=== PATIENT | female | born 1970 | race Caucasian/White ===

== ENCOUNTER 2021-03-21 21:39 | Emergency (ER) | payer BC, SELFPAY ==
[2021-03-21 21:40] VITALS: BP 153/92; PULSE 88; RESP 15; TEMP 36.6; O2SAT 99; BMI 31.3
[2021-03-21 22:18] VITALS: BP 140/84; PULSE 80; RESP 14; O2SAT 98
--- NOTE | 2021-03-21 22:20 | EKG12_ITS ---
Test Reason : ARM PAIN Blood Pressure : / mmHG Vent. Rate : 084 BPM Atrial Rate : 084 BPM P-R Int : 200 ms QRS Dur : 084 ms QT Int : 370 ms P-R-T Axes : 057 023 046 degrees QTc Int : 437 ms Normal sinus rhythm Normal ECG Confirmed by SOFÍA BENAVIDES, ASHA ([id number]), map editor RAFAEL THOMPSON ([id number]) on 03/23/2021 9:40:15 AM Referred By: JOANNE Confirmed By:ASHA GORE MD
[2021-03-21 23:01] VITALS: O2SAT 98
--- NOTE | 2021-03-21 23:10 | EX.ED.UPPERE ---
HPI History of Present Illness Chief Complaint: Upper Extremity Injury Narrative Narrative: 50-year-old female presenting with palpitations and pain in the left shoulder. She states that she noticed this for the last couple of days. She states she has a bruise on the left forearm and sometimes the pain in her left shoulder radiates down to the left arm. She denies any cardiac history. She relates that she had COVID last year and just had a mild case of COVID about 3 weeks ago. She is not having elan chest pain or pressure. She does state that the pain in her left shoulder is sharp. She does not have pleuritic chest pain. She is not short of breath. She does not have fever or chills. She does have concern that she might have a blood clot. Patient has no history of DVT/PE and no other risk factors other than recent COVID-19 pneumonitis. PFSH PFSH Medical History Anxiety Depression Former smoker Osteoporosis Allergy/AdvReac Type Severity Reaction Status Date / Time No Known Allergies Allergy Verified 03/21/21 21:40 Surgical History Hx of tonsillectomy Social History Smoking Status: Former smoker ROS ROS ED Constitutional Constitutional ED: Denies chills or fever(s) Eyes Eyes: Denies blurry vision or diplopia ENT ENT ED: Denies rhinorrhea or sore throat Cardiovascular Cardiovascular: Reports palpitations Respiratory/Chest Respiratory/Chest: Denies cough or dyspnea Gastrointestinal Gastrointestinal: Denies abdominal pain, nausea or vomiting Genitourinary Genitourinary ED: Denies dysuria or hematuria Musculoskeletal Musculoskeletal: Reports other Details: Left shoulder and left forearm pain Integumentary Reports other Details: 2 cm bruise on left forearm ; Denies rash Neurologic Neurologic: Denies headache(s) or weakness EXAM Physical Exam Const Vital Signs: 03/21/21 21:40 03/21/21 22:18 Temperature 97.8 F Temperature Source Temporal Pulse Rate 88 80 Respiratory Rate 15 14 Blood Pressure 153/92 H 140/84 H Blood Pressure Mean 112 102 Pulse Ox 99 98 Oxygen Delivery Method Room Air Room Air Positive well nourished General Appearance ED: NAD HEENT normocephalic and atraumatic Eyes PERRL and EOMs intact bilaterally Neck full ROM and supple Chest Wall inspection of chest normal Resp normal respiratory effort and clear to auscultation bilaterally Cardio regular rate and regular rhythm Extremity Extremity Narrative: 2 cm bruise to left forearm laterally on the dorsal surface. No cords palpated. 2+ radial pulse. Left hand neurovascular intact brisk cap refill to all 5 fingers. Psych mental status grossly normal Skin Skin Narrative: Bruising as noted above MDM MDM MDM Narrative Medical decision making narrative: Given patient's concern for palpitations and possible PE I did obtain an EKG and on my interpretation this is a normal sinus rhythm at a ventricular rate of 84 bpm without sign of ischemic change or dysrhythmia. Chest x-ray on my interpretation shows no acute cardiopulmonary process and the radiologist does agree. Left shoulder x-ray on my interpretation shows no acute fracture or subluxation. CBC and BMP unremarkable. D-dimer is negative. High-sensitivity troponin is initially 4 and the delta troponin is 5. This does rule out ACS. Ultimately patient has negative cardiac work-up. She is negative for PE and her left shoulder is normal. Patient given instructions for alternating ice and heat for pain in the left shoulder. She will follow-up with her PCP to ensure resolution. Impression: 1. Palpitations 2. Left shoulder strain 3. Left forearm contusion Discharge Plan Triage Chief Complaint: Upper Extremity Injury ED Provider: Jayden Medrano Dx/Rx/DC Orders Instructions: ED Palpitations, ED Shoulder Sprain Referrals: RADAMES KNIGHT [Other] Disposition Disposition: Home, Self Care
--- NOTE | 2021-03-21 23:25 | RAD_ITS ---
STUDY: X-RAY CHEST REASON FOR EXAM: Female, 50 years old. Chest pain TECHNIQUE: Frontal view COMPARISON: None. FINDINGS: The lungs are clear and expanded. There is no demonstrated pleural abnormality. Normal size heart. Normal mediastinum and mary. Normal visualized pulmonary arteries. Normal visualized aortic arch and descending thoracic aorta. Normal visualized thoracic spine. Normal visualized ribs, clavicles, and shoulders. There is no demonstrated abnormality of the visualized soft tissue structures of the upper abdomen. RAD/Chest 1 View (Portable) IMPRESSION: Normal x-ray examination of the chest. Electronically Signed: Rashaun Naqvi DO at 23:43 EST Tel [phone], Service support ,
[2021-03-21 23:29] LABS: Absolute Lymphocyte Count 2.16 X10^3/uL (0.83-4.51); Absolute Neutrophil Count 3.7 X10^3/uL (2.0-7.7); Anion Gap 7 (5-15); BUN 20 mg/dL (7-18); BUN/Creat Ratio 20.9 RATIO (10-20); Basophil# 0.06 X10^3/uL; Basophil% 0.9 % (0-1); Calcium,Total 9.1 mg/dL (8.5-10.1); Chloride 107 mmol/L (98-107); Creatinine, Serum 0.96 mg/dL (0.55-1.02); EST Glomerular Filtration Rate 65 mL/min (>60); Eosinophils% 1.5 % (0-5); Est Glom Filt Rate - Afr Amer 79 mL/min (>60); Estimated Creatinine Clearance 66.66 ml/min; Glucose 141 mg/dL (74-106); Hematocrit 36.3 % (37-47); Lymphocyte # 2.16 X10^3/ul (0.83-4.51); Lymphocyte % 31.6 % (19-41); Mean Corp Hgb Conc 33.1 g/dL (32-36); Mean Corpuscular Hgb 29.9 pg (27.0-32.0); Mean Corpuscular Volume 90.3 fL (81-99); Mean Platelet Vol. 10.3 fl (6.2-12.0); Monocyte# 0.76 X10^3/uL; Monocyte% 11.1 % (0-10); NRBC Flagged by Analyzer 0 % (0-5); Neutrophil # 3.68 X10^3/uL (2.7-7.7); Neutrophil % 53.9 % (47-70); Platelet Count 294 K/mm3 (150-450); Potassium 3.6 mmol/L (3.5-5.1); RBC Distribution Width CV 11.9 % (11.6-14.6); RBC Distribution Width SD 39.5 fl (35.1-43.9); Red Blood Count 4.02 M/mm3 (4.2-5.4); Sodium Level 141 mmol/L (136-145); Troponin-I HS 4 pg/mL (3.0-54.0); White Blood Count 6.8 K/mm3 (4.4-11.0)
[2021-03-21 23:30] LABS: D-Dimer Quantitative (DVT/PE) <= 0.27 FEU/ug/m (0.27-0.49)
--- NOTE | 2021-03-22 00:20 | RAD_ITS ---
STUDY: X-RAY - LEFT SHOULDER REASON FOR EXAM: Female, 50 years old. shoulder pain TECHNIQUE: 2 view(s) of the shoulder. COMPARISON: None. FINDINGS: Normal glenohumeral articulation. Normal acromioclavicular joint. Normal acromion. Normal humeral head and visualized proximal humerus. The soft tissue structures are unremarkable. Normal visualized pulmonary apex. RAD/Shoulder min 2 Views IMPRESSION: Normal x-ray examination of the shoulder. Electronically Signed: Phan Bruno MD at 1:11 EST , Service support ,
[2021-03-22 01:24] LABS: Troponin-I HS 5 pg/mL (3.0-54.0)
[2021-03-22 01:32] VITALS: BP 140/68; PULSE 84; RESP 16; O2SAT 99
== END 2021-03-22 01:47 | disposition home or self-care (01) ==
PROVIDERS: Emergency Provider Student in an Organized Health Care Education/Training Program; Visit Provider Student in an Organized Health Care Education/Training Program
DX: R00.2 Palpitations (principal); Z87.891 Personal history of nicotine dependence; S50.12XA Contusion of left forearm, initial encounter; S43.402A Unspecified sprain of left shoulder joint, initial encounter; M81.0 Age-related osteoporosis without current pathological fracture; Z86.16 Personal history of COVID-19; Z87.01 Personal history of pneumonia (recurrent); X58.XXXA Exposure to other specified factors, initial encounter; Y93.9 Activity, unspecified; Y92.9 Unspecified place or not applicable
CPT/HCPCS: 71045; 73030; 80048; 84484; 85025; 85379; 93005; 99283; A4216